=== PATIENT | female | born 1960 | race Caucasian/White ===

== ENCOUNTER 2023-06-30 07:57 | Day surgery (SDC) | payer MEDICAID, SELFPAY ==
[2023-06-30] VITALS (7 sets, daily range): BP systolic 102–140; BP diastolic 62–81; PULSE 61–87; RESP 16; TEMP 37.2–37.3; O2SAT 92–97; BMI 18.1
--- NOTE | 2023-06-30 | FORE_PTH ---
PATIENT: JAMIN DENNIS LOC: [facility] [place] U#:[id number] AGE/SX: 62/F ROOM: RE06/30/[address]: Dr. Asya Mars MD : [id number] BED: DIS: 06/30/2023 SPEC #: [id number] RECD: 06/30/23 14:35 STATUS: BELEM LYNNHerminia #: [id number] MORENA: 06/30/23 00:[address]: Asya Mars DEPT: SURGICAL PATHOLOGY RECD BY: Raheel Sparks Tissues: A - FOREIGN BODY B - FOREIGN BODY Procedures: Decalcification bone/plaque Surgery Specimen Level II Surgery Specimen Level IV HEADER OPERATION: Removal breast implants, capsulectomy PRE-OP DIAGNOSIS: Rupture silicone breast implants, anterior chest wall TISSUE SUBMITTED: A - Right breast implant and capsule, B - Left breast implant and capsule MICROSCOPIC DIAGNOSIS A. Right breast implant capsule, excision: Fibrofatty tissue with chronic inflammation, foreign body giant cell reaction to nonpolarizable maternal, fat necrosis and dystrophic microcalcifications. Ruptured capsule and contents (gross diagnosis only). B. Left breast implant capsule, excision: Fibrofatty tissue with chronic inflammation, foreign body giant cell reaction to nonpolarizable maternal, fat necrosis and dystrophic microcalcifications. Ruptured capsule and contents (gross diagnosis only). AM:sultana 07/05/2023 MICROSCOPIC DESCRIPTION Slides are reviewed. GROSS DESCRIPTION A - Received in fixative is one container labeled with the patient's name and designated right breast implant and capsule. The specimen consists of a ruptured silicone type capsule measuring 4.0 cm in diameter. Distinct letter or number markings are not identifiable. Also present in the specimen container are two irregular fragments of yellow-briggs soft tissue ranging in size from 2.0 to 10.0 cm. The largest fragment is consistent with capsular tissue. The tissue cuts with a gritty sensation. The cyst varies in thickness from 0.1 to 0.3 cm. No mass lesions are identified. Data Architect sections of soft tissue are submitted in one cassette after decalcification. B - Received in fixative is one container labeled with the patient's name and designated left breast implant and capsule. The specimen consists of a ruptured implant incased in capsule. The specimen measures 13.0 x 9.0 x 5.0 cm. Present free in the container is silicone-like material measuring 5.0 x 5.0 x 1.0 cm. No mass lesions are identified. Data Architect sections of soft tissue are submitted in one cassette after decalcification. / AM:sultana 07/03/2023 TC:3 CPT: 01934 x2, 18041 x2, 44397 x2
[2023-06-30] MEDS: Lactated Ringers 1,000 ML 15 ML IV (08:59)
[2023-06-30] MEDS: Cefazolin 2 GM in 0.9% Normal Saline (100mL Bag) 100 ML IV (09:48)
[2023-06-30] MEDS: Lidocaine 1% /Epi 1:100 (50ml) 50 ML VIAL (10:22)
[2023-06-30] MEDS: Bupivacaine 0.25% 30 ML Vial (13:13)
--- NOTE | 2023-06-30 13:28 | PCM.HP.BLA ---
History and Physical Date of Admission: 06/30/23 Patient is examined and there are no changes from her medical clearance and H&P dated 06/13/2023. The procedure of capsulectomy and implant removal bilaterally was reviewed with her. Informed consent was obtained. Assessment & Plan Assessment/Plan (1) Anterior chest wall pain: (2) Ruptured silicone breast implant: PLAN: Plan Patient for bilateral implant capsulectomies and removal of silicone implants.
--- NOTE | 2023-06-30 13:30 | DCINST_ITS ---
Discharge Instructions Diet Discharge Diet: No restrictions Activity Additional Activity Instructions:: Keep your back elevated in a recliner position. Follow instructions given in the office. Dressing / Incision Additional Dressing/Incision Instructions:: Empty PAULA drains 2-3 times a day and record the output. Follow Up Care Please Follow Up With: Asya aMrs MD Test Results: Test results from this visit will be discussed in further detail at your follow- up appointment, if applicable. Discharge Plan Admission Attending Provider: Asya Mars Primary Care Provider: REHAN HUTSON Discharge Orders/Prescriptions Prescriptions: No Action amlodipine 5 mg tablet 5 mg PO DAILY Patient Comments: take 1 tablet by mouth once daily albuterol sulfate 90 mcg/actuation HFA aerosol inhaler 1 inh inhalation PRN PRN (Reason: shortness of breath or wheezing) Patient Comments: inhale 2 puffs by mouth and INTO THE LUNGS every 4 to 6 hours if needed multivitamin Tablet 1 tab PO DAILY cholecalciferol (vitamin D3) 10 mcg (400 unit) capsule 10 mcg PO DAILY ascorbate calcium (vitamin C) 500 mg tablet 500 mg PO DAILY Galzin 25 mg (zinc) capsule 25 mg PO DAILY Disposition Disposition (needs filled in before D/C Order can be placed): Home, Self Care
--- NOTE | 2023-06-30 13:31 | PCM.OPRPT ---
Problems Associated Problem List Diagnoses (1) Anterior chest wall pain: (2) Ruptured silicone breast implant: Report of Operation Date of Procedure: 06/30/23 Pre-Operative Diagnosis: Bilateral breast pain, history of silicone breast implant placement 39 years ago. Post-Operative Diagnosis: Same, bilateral ruptured silicone implants Surgery/Procedure Performed:: Bilateral silicone implant capsulectomies and removal of silicone implants. Surgeon: Asya Mars flexo folder gluer operator: CLAUDETTE HUERTASclinical laboratory technician Type of Anesthesia: General Specimen's removed: Silicone implants and capsules Drains: PAULA x2 Estimated Blood Loss (mL): <50cc Description of Procedure: The procedure of bilateral implant capsulectomies and removal of silicone implants was reviewed. The patient elects not to have implant replacement. She is aware of the need for drains following the procedure. Informed consent was obtained. The patient is marked in the preop holding area. The patient was brought to the operating room and placed under general anesthesia in the supine position. Care is taken to pad all pressure points, insert a Gallo catheter, sequential compression stockings, and a warming blanket. The breast and chest are prepped and draped in the usual sterile fashion. The incision areas are injected with 1% Xylocaine with epinephrine. We initially began with making incisions in the inframammary area. This is carried down through the subcutaneous tissue until the capsules of the implants were encountered. Dissection is carried along the outer aspect of the capsule. Areas of extracapsular rupture are encountered bilaterally. The left silicone implant is removed mostly contained within the capsule. Any obvious residual silicone is debrided. The pocket is copiously irrigated and sponged out to extract as much silicone as possible. The right capsule is dissected and because of the extracapsular rupture, the implant is removed separate from the capsule and dissection continues along the wall of the capsule to remove it in its entirety. The wound is copiously irrigated and sponged out. The capsule is heavily calcified. Meticulous hemostasis is performed on both sides. A PAULA drain is placed within the pocket and brought out through the lateral aspect of the incision. This is anchored in place with a nylon suture. The incision is then closed in layers with a strata fix suture including a subcuticular skin layer. Xeroform is placed along the incision and fluff gauze were placed. Approximately 10 cc of quarter percent Marcaine are injected within the pockets and along the skin incision. She is placed in a surgery bra. She tolerated the procedure well was taken to the recovery area in an awakening in stable condition. Needle and sponge counts are correct. Complications none Admit VTE Documentation VTE Mechan Device Prophylaxis: SCD's
--- NOTE | 2023-06-30 14:55 | SUR.PHASEII ---
instructed patient on how to empty PAULA drains; patient return demonstrated without any problems noted.
== END 2023-06-30 16:14 | disposition home or self-care (01) ==
LOC: SDC 08:04 → AC 08:05
PROVIDERS: Referring Provider Plastic Surgery; Visit Provider Plastic Surgery
PROC: (CPT 19371; principal; 2023-06-30 09:10)
DX: T85.41XA Breakdown (mechanical) of breast prosthesis and implant, initial encounter (principal); R07.89 Other chest pain; I10 Essential (primary) hypertension; Y83.1 Surgical operation with implant of artificial internal device as the cause of abnormal reaction of the patient, or of later complication, without mention of misadventure at the time of the procedure; Z98.82 Breast implant status
CPT/HCPCS: 19371; 00402; 88300; 88302; 88305; 88311; J7120; C1729; J2405